=== PATIENT | male | born 1965 | race African-American/Black ===

== ENCOUNTER 2017-09-05 07:37 | Emergency (ER) | payer OTHER ==
[~2017-09-05] VITALS: Ht 177.8 cm; Wt 69.0 kg
[2017-09-05] MEDS ORDERED: SODIUM CHLORIDE 0.9% 1,000 ML IV ONE ×2 (08:56→10:45)
[2017-09-05] MEDS ORDERED: METOCLOPRAMIDE HCL 10MG/2ML VIAL IV STA (08:56)
[2017-09-05] MEDS ORDERED: MORPHINE SULFATE 4 MG/ML CPJ (NOT FOR IM USE) IV STA (08:56)
[2017-09-05 09:38] LABS: CLARITY URINE CLEAR (CLEAR); COLOR URINE YELLOW (YELLOW); KETONES URINE NEGATIVE (NEGATIVE); LEUKOCYTE ESTERASE URINE NEGATIVE (NEGATIVE); NITRITE URINE NEGATIVE (NEGATIVE); OCCULT BLOOD URINE NEGATIVE (NEGATIVE); PH URINE 7.5 (4.5-8.0); PROTEIN URINE NEGATIVE (NEGATIVE); SPECIFIC GRAVITY URINE 1.006 (1.005-1.030); UROBILINOGEN URINE 0.2 E.U./dL (0.2-1.0)
[2017-09-05 09:55] LABS: HEMOGLOBIN. 12.3 g/dL (14.0-18.0); LYMPHOCYTES % 47.3 % (20.0-50.0); MEAN CORPUSCULAR HEMOGLOBIN 31.7 pg (28.0-32.0); MEAN CORPUSCULAR VOLUME 95.7 fL (80.0-94.0); MEAN PLATELET VOLUME 7.7 fl (7.4-10.4); MONOCYTES % 6.8 % (2.0-8.0); NEUTROPHILS % 42.9 % (40.0-76.0); PLATELET 132 x1000/uL (130-400); RED BLOOD CELL COUNT 3.87 mill/uL (4.7-6.1); RED CELL DISTRIBUTION WIDTH 13.9 % (11.6-14.6)
[2017-09-05 09:59] LABS: CHLORIDE 109 mEq/L (98-107)
[2017-09-05 10:01] LABS: PROTHROMBIN TIME 10.7 sec (9.4-11.6)
[2017-09-05 10:10] LABS: BETA HYDROXYBUTYRATE 0.3 mMol/L (0.0-0.3)
[2017-09-05] MEDS ORDERED: ONDANSETRON HCL 4MG/2ML VIAL IV ONE (10:45)
[2017-09-05] MEDS ORDERED: MORPHINE SULFATE 2 MG/ML CPJ (NOT FOR IM USE) IV ONE (10:45)
[2017-09-05] MEDS ORDERED: MORPHINE SULFATE 4 MG/ML CPJ (NOT FOR IM USE) IV NR (11:40)
[2017-09-05 16:00] VITALS: BP 154/92
== END 2017-09-05 16:30 | disposition short-term general hospital (02) ==
LOC: ER 08:13 → ENRESERV 13:08 → CANRESERV 13:08 → CANBEDREQ 14:06 → ER 16:30
DX: K56.7 Ileus, unspecified (principal); K31.84 Gastroparesis; I10 Essential (primary) hypertension; E11.43 Type 2 diabetes mellitus with diabetic autonomic (poly)neuropathy; E11.65 Type 2 diabetes mellitus with hyperglycemia; E11.319 Type 2 diabetes mellitus with unspecified diabetic retinopathy without macular edema; F12.10 Cannabis abuse, uncomplicated; H40.9 Unspecified glaucoma; F17.200 Nicotine dependence, unspecified, uncomplicated; K52.9 Noninfective gastroenteritis and colitis, unspecified; Z86.73 Personal history of transient ischemic attack (TIA), and cerebral infarction without residual deficits; Z90.49 Acquired absence of other specified parts of digestive tract; Z98.890 Other specified postprocedural states
CPT/HCPCS: 36415; 74176; 80053; 81003; 82010; 82962; 83690; 83880; 84484; 85025; 85610; 93005; 96361; 96374; 96375; 96376; 99285; J2270; J2405; J2765; J7030; Z7610

== ENCOUNTER 2018-02-22 07:22 | Emergency (ER) | payer OTHER ==
[~2018-02-22] VITALS: Ht 170.2 cm; Wt 67.0 kg
[~2018-02-22 07:22] MED LIST: AMLO10TA4 PO; BENA20TA10 PO; CALC-25 PO; CYPR4SYR PO; GABA800T97 PO; LEVE500T19 PO; METF10004 PO; METO-293 PO; MORP30TA66 PO; PANT40TA4 PO
[2018-02-22 08:24] LABS: BASOPHILS % 0.8 % (0.0-2.0); EOSINOPHILS % 0.9 % (0.0-5.0); HEMATOCRIT. 37.2 % (42.0-52.0); HEMOGLOBIN. 12.7 g/dL (14.0-18.0); LYMPHOCYTES % 36.3 % (20.0-50.0); MEAN CORPUSCULAR HEMOGLOBIN 33.5 pg (28.0-32.0); MEAN CORPUSCULAR VOLUME 98.3 fL (80.0-94.0); MONOCYTES % 7.9 % (2.0-8.0); NEUTROPHILS % 54.1 % (40.0-76.0); PLATELET 147 x1000/uL (130-400); RED BLOOD CELL COUNT 3.78 mill/uL (4.7-6.1); RED CELL DISTRIBUTION WIDTH 14.8 % (11.6-14.6)
[2018-02-22 08:31] LABS: CHLORIDE 102 mEq/L (98-107)
[2018-02-22 08:41] LABS: CLARITY URINE CLEAR (CLEAR); COLOR URINE YELLOW (YELLOW); KETONES URINE NEGATIVE (NEGATIVE); LEUKOCYTE ESTERASE URINE NEGATIVE (NEGATIVE); NITRITE URINE NEGATIVE (NEGATIVE); OCCULT BLOOD URINE NEGATIVE (NEGATIVE); PROTEIN URINE NEGATIVE (NEGATIVE); SPECIFIC GRAVITY URINE 1.009 (1.005-1.030); UROBILINOGEN URINE 0.2 E.U./dL (0.2-1.0)
[2018-02-22 09:08] LABS: *AMPHETAMINES SCREEN URINE NEGATIVE (NEGATIVE); *BARBITURATES SCREEN URINE NEGATIVE (NEGATIVE); *BENZODIAZEPINES SCREEN URINE NEGATIVE (NEGATIVE); *COCAINE SCREEN URINE NEGATIVE (NEGATIVE)
[2018-02-22 09:09] LABS: CANNABINOID URINE SCREEN PRESUMTIVE POSITIVE (NEGATIVE); OPIATES URINE SCREEN PRESUMTIVE POSITIVE (NEGATIVE); PHENCYCLIDINE URINE SCREEN NEGATIVE (NEGATIVE)
[2018-02-22 09:10] LABS: METHADONE URINE SCREEN NEGATIVE (NEGATIVE)
[2018-02-22 10:06] VITALS: BP 143/80
== END 2018-02-22 10:12 | disposition home or self-care (01) ==
LOC: ER 07:22
DX: G40.909 Epilepsy, unspecified, not intractable, without status epilepticus (principal); I10 Essential (primary) hypertension; E11.9 Type 2 diabetes mellitus without complications; F12.90 Cannabis use, unspecified, uncomplicated; Z86.73 Personal history of transient ischemic attack (TIA), and cerebral infarction without residual deficits; R79.89 Other specified abnormal findings of blood chemistry
CPT/HCPCS: 36415; 80053; 80305; 81003; 85025; 99284

== ENCOUNTER 2018-03-07 12:59 | Inpatient (IN) | payer OTHER ==
[~2018-03-07] VITALS: Ht 177.8 cm; Wt 71.2 kg
[2018-03-07] MEDS ORDERED: NITROGLYCERIN OINT 1GM/INCH UDPKT TD STA (14:09)
[2018-03-07] MEDS ORDERED: MORPHINE SULFATE 4 MG/ML CPJ (NOT FOR IM USE) IV STA (14:09)
[2018-03-07] MEDS ORDERED: ONDANSETRON HCL 4MG/2ML INJ IV ONE (14:15)
[2018-03-07 14:24] LABS: BASOPHILS % 0.4 % (0.0-2.0); EOSINOPHILS % 0.9 % (0.0-5.0); HEMATOCRIT. 36.3 % (42.0-52.0); HEMOGLOBIN. 12.3 g/dL (14.0-18.0); LYMPHOCYTES % 40.6 % (20.0-50.0); MEAN CORPUSCULAR HEMOGLOBIN 33.7 pg (28.0-32.0); MEAN CORPUSCULAR VOLUME 99.1 fL (80.0-94.0); MEAN PLATELET VOLUME 8.2 fl (7.4-10.4); NEUTROPHILS % 50.1 % (40.0-76.0); PLATELET 147 x1000/uL (130-400); RED BLOOD CELL COUNT 3.66 mill/uL (4.7-6.1); RED CELL DISTRIBUTION WIDTH 14.9 % (11.6-14.6)
[2018-03-07 14:29] LABS: CHLORIDE 103 mEq/L (98-107)
[2018-03-07 17:54] LABS: CLARITY URINE CLEAR (CLEAR); COLOR URINE YELLOW (YELLOW); KETONES URINE NEGATIVE (NEGATIVE); LEUKOCYTE ESTERASE URINE NEGATIVE (NEGATIVE); NITRITE URINE NEGATIVE (NEGATIVE); OCCULT BLOOD URINE NEGATIVE (NEGATIVE); PH URINE 5.5 (4.5-8.0); PROTEIN URINE NEGATIVE (NEGATIVE); SPECIFIC GRAVITY URINE 1.005 (1.005-1.030); UROBILINOGEN URINE 0.2 E.U./dL (0.2-1.0)
[2018-03-07 20:00] VITALS: BP 161/90
[2018-03-07] MEDS ORDERED: ATOR40TA70 PO (21:20)
[2018-03-07] MEDS ORDERED: HYDR25TA PO (21:20)
[2018-03-07] MEDS ORDERED: ASPI-1158 PO (21:20)
[2018-03-07] MEDS ORDERED: POTA10TA20 PO (21:20)
[2018-03-07] MEDS ORDERED: CALC-25 PO (21:20)
[2018-03-07] MEDS ORDERED: CHOL100053 PO (21:20)
[2018-03-07 22:24] VITALS: BP 161/90
[2018-03-07] MEDS: HYDROMORPHONE HCL/PF 2MG/ML CPJ IV PRN (23:58)
[2018-03-08] VITALS: BP 144/80
[2018-03-08] MEDS ORDERED: POTASSIUM CHLORIDE 20MEQ TABLET SR PO SCH (01:00)
[2018-03-08] MEDS ORDERED: DEXT 5%/0.45% NACL KCL 20MEQ/L 1,000 ML IV NR (02:00)
[2018-03-08 04:00] VITALS: BP 110/63
[2018-03-08] MEDS: ONDANSETRON HCL 4MG/2ML INJ IV PRN ×2 (04:40→12:37)
[2018-03-08] MEDS: PANTOPRAZOLE 40MG DR TABLET PO SCH (06:29)
[2018-03-08 06:41] LABS: BASOPHILS % 0.6 % (0.0-2.0); EOSINOPHILS % 2.3 % (0.0-5.0); HEMATOCRIT. 32.5 % (42.0-52.0); HEMOGLOBIN. 11.3 g/dL (14.0-18.0); LYMPHOCYTES % 44.6 % (20.0-50.0); MEAN CORPUSCULAR HEMOGLOBIN 34.1 pg (28.0-32.0); MEAN CORPUSCULAR VOLUME 97.7 fL (80.0-94.0); MEAN PLATELET VOLUME 8.1 fl (7.4-10.4); MONOCYTES % 7.1 % (2.0-8.0); NEUTROPHILS % 45.4 % (40.0-76.0); PLATELET 128 x1000/uL (130-400); RED BLOOD CELL COUNT 3.33 mill/uL (4.7-6.1); RED CELL DISTRIBUTION WIDTH 14.9 % (11.6-14.6)
[2018-03-08 06:59] LABS: CHLORIDE 105 mEq/L (98-107)
[2018-03-08 07:09] LABS: CREATINE KINASE 126 IU/L (39-308)
[2018-03-08 07:10] LABS: HDL CHOLESTEROL 47 mg/dL (40-59)
[2018-03-08 07:12] LABS: CREATINE KINASE MB FRACTION < 1.0 ng/mL (0.5-3.6)
[2018-03-08] MEDS ORDERED: METFORMIN HCL 500MG TABLET PO SCH (07:15)
[2018-03-08 07:50] LABS: LDL CHOLESTEROL 8 mg/dL (5-100)
[2018-03-08 08:00] VITALS: BP 138/79
[2018-03-08] MEDS: GABAPENTIN 300MG CAPSULE PO SCH ×3 (09:35→17:25)
[2018-03-08] MEDS: BENAZEPRIL 10MG TABLET PO SCH (09:36)
[2018-03-08] MEDS: AMLODIPINE 10MG TABLET PO SCH (09:37)
[2018-03-08] MEDS: ASPIRIN 81MG TABLET PO SCH (09:37)
[2018-03-08] MEDS: LEVETIRACETAM 500MG TABLET PO SCH ×2 (09:37→21:20)
[2018-03-08] MEDS: HYDROCHLOROTHIAZIDE 25MG TABLET PO SCH (09:40)
[2018-03-08] MEDS ORDERED: DEXTROSE 50% WATER 50ML SYRINGE IV PRN (11:30)
[2018-03-08 11:43] VITALS: BP 140/85
[2018-03-08] MEDS: HYDROMORPHONE HCL/PF 2MG/ML CPJ IV PRN (11:46)
[2018-03-08] MEDS: BLOOD SUGAR DIAGNOSTIC STRIP TEST SCH ×3 (11:58→21:20)
[2018-03-08 16:00] VITALS: BP 122/70
[2018-03-08 16:24] LABS: HEMATOCRIT 34.5 % (42.0-52.0); HEMOGLOBIN 11.6 g/dL (14.0-18.0)
[2018-03-08 17:09] LABS: HEPATITIS B SURFACE ANTIGEN NEGATIVE
[2018-03-08 17:38] LABS: HEPATITIS B CORE AB IGM NEGATIVE
[2018-03-08 17:39] LABS: HEPATITIS A AB IGM NEGATIVE (NEGATIVE)
[2018-03-08] MEDS: METOCLOPRAMIDE HCL 10MG/2ML VIAL IV SCH (18:00)
[2018-03-08 20:00] VITALS: BP 130/71
[2018-03-08] MEDS ORDERED: ATORVASTATIN CALCIUM 40MG TABLET PO SCH (21:00)
[2018-03-08] MEDS: SUCRALFATE 1 G/10 ML UDC PO SCH (21:20)
[2018-03-09] VITALS: BP 120/74
[2018-03-09] MEDS: METOCLOPRAMIDE HCL 10MG/2ML VIAL IV SCH ×3 (01:54→12:47)
[2018-03-09] MEDS: HYDROMORPHONE HCL/PF 2MG/ML CPJ IV PRN ×3 (01:57→14:17)
[2018-03-09 04:00] VITALS: BP 120/74
[2018-03-09] MEDS: SUCRALFATE 1 G/10 ML UDC PO SCH ×3 (06:35→16:49)
[2018-03-09] MEDS: BLOOD SUGAR DIAGNOSTIC STRIP TEST SCH ×3 (06:36→16:49)
[2018-03-09] MEDS: PANTOPRAZOLE 40MG DR TABLET PO SCH (06:36)
[2018-03-09 07:01] LABS: HEMATOCRIT 32.4 % (42.0-52.0); HEMOGLOBIN 11.3 g/dL (14.0-18.0); MEAN CORPUSCULAR HEMOGLOBIN 34.2 pg (28.0-32.0); MEAN CORPUSCULAR VOLUME 98.1 fL (80.0-94.0); PLATELET 119 x1000/uL (130-400); RED CELL DISTRIBUTION WIDTH 14.9 % (11.6-14.6)
[2018-03-09 08:00] VITALS: BP 107/62
[2018-03-09] MEDS: GABAPENTIN 300MG CAPSULE PO SCH ×3 (09:26→16:49)
[2018-03-09] MEDS: HYDROCHLOROTHIAZIDE 25MG TABLET PO SCH (09:26)
[2018-03-09] MEDS: ASPIRIN 81MG TABLET PO SCH (09:26)
[2018-03-09] MEDS: AMLODIPINE 10MG TABLET PO SCH (09:30)
[2018-03-09] MEDS: BENAZEPRIL 10MG TABLET PO SCH (10:07)
[2018-03-09] MEDS: LEVETIRACETAM 500MG TABLET PO SCH (10:37)
[2018-03-09 13:09] LABS: CHLORIDE 105 mEq/L (98-107)
[2018-03-09 18:13] VITALS: BP 131/72
== END 2018-03-09 18:48 | disposition home or self-care (01) | DRG 48 ==
LOC: ER 13:22 → ENRESERV 17:37 → 5WST 22:16
PROVIDERS: ADMIT Internal Medicine; ATTEND Internal Medicine
DX: E11.43 Type 2 diabetes mellitus with diabetic autonomic (poly)neuropathy (principal); D61.810 Antineoplastic chemotherapy induced pancytopenia; E11.649 Type 2 diabetes mellitus with hypoglycemia without coma; R56.9 Unspecified convulsions; K31.84 Gastroparesis; E87.6 Hypokalemia; K74.60 Unspecified cirrhosis of liver; D64.9 Anemia, unspecified; D86.9 Sarcoidosis, unspecified; E78.00 Pure hypercholesterolemia, unspecified; E78.5 Hyperlipidemia, unspecified; H54.7 Unspecified visual loss; I11.9 Hypertensive heart disease without heart failure; N40.0 Benign prostatic hyperplasia without lower urinary tract symptoms; Z85.038 Personal history of other malignant neoplasm of large intestine; Z86.73 Personal history of transient ischemic attack (TIA), and cerebral infarction without residual deficits; Z90.49 Acquired absence of other specified parts of digestive tract; Z92.21 Personal history of antineoplastic chemotherapy; Z92.3 Personal history of irradiation; Z79.84 Long term (current) use of oral hypoglycemic drugs; Z79.899 Other long term (current) drug therapy
CPT/HCPCS: 36415; 71045; 74176; 76700; 80048; 80053; 80061; 80076; 81003; 82542; 82550; 82553; 82962; 83036; 83690; 84153; 84484; 85014; 85018; 85025; 85027; 86705; 86709; 86803; 87340; 93005; 93306; 96365; 96375; 99285; C1893; J1170; J2270; J2405; J2765; G0103

== ENCOUNTER 2018-04-04 02:59 | Emergency (ER) | payer OTHER ==
[~2018-04-04] VITALS: Ht 175.3 cm; Wt 69.6 kg
[~2018-04-04 02:59] MED LIST changes: +ASPI-1158 PO; +ATOR40TA70 PO; +CHOL100053 PO; -CYPR4SYR PO; +HYDR25TA PO; -METF10004 PO; -METO-293 PO; -MORP30TA66 PO
[2018-04-04] MEDS ORDERED: SODIUM CHLORIDE 0.9% 1,000 ML IV ONE (06:58)
[2018-04-04] MEDS ORDERED: FAMOTIDINE 20MG/2ML VIAL IV ONE (07:00)
[2018-04-04] MEDS ORDERED: METOCLOPRAMIDE HCL 10MG/2ML VIAL IV ONE (07:00)
[2018-04-04 07:22] LABS: BASOPHILS % 0.8 % (0.0-2.0); EOSINOPHILS % 1.5 % (0.0-5.0); HEMATOCRIT. 36.1 % (42.0-52.0); HEMOGLOBIN. 12.3 g/dL (14.0-18.0); LYMPHOCYTES % 29.8 % (20.0-50.0); MEAN CORPUSCULAR HEMOGLOBIN 33.7 pg (28.0-32.0); MEAN CORPUSCULAR VOLUME 98.7 fL (80.0-94.0); MEAN PLATELET VOLUME 7.7 fl (7.4-10.4); NEUTROPHILS % 61.9 % (40.0-76.0); PLATELET 134 x1000/uL (130-400); RED BLOOD CELL COUNT 3.66 mill/uL (4.7-6.1); RED CELL DISTRIBUTION WIDTH 14.5 % (11.6-14.6)
[2018-04-04 07:26] LABS: CHLORIDE 103 mEq/L (98-107)
[2018-04-04 07:31] LABS: ETHANOL BLOOD < 10 mg/dL
[2018-04-04] MEDS ORDERED: MORPHINE SULFATE 4 MG/ML CPJ (NOT FOR IM USE) IV ONE ×2 (10:30→13:45)
[2018-04-04] MEDS ORDERED: VISCOUS LIDOCAINE 2% 15 ML UDC PO STA (12:41)
[2018-04-04] MEDS ORDERED: MAGNESIUM/ALUMINUM HYDROXIDE/SIMETHICONE 30ML UDC PO STA (12:41)
[2018-04-04] MEDS ORDERED: ONDANSETRON HCL 4MG/2ML INJ IV ONE (12:45)
[2018-04-04 13:57] VITALS: BP 142/90
== END 2018-04-04 14:08 | disposition home or self-care (01) ==
LOC: ER 02:59
DX: K86.1 Other chronic pancreatitis (principal); R07.9 Chest pain, unspecified; G40.909 Epilepsy, unspecified, not intractable, without status epilepticus; I10 Essential (primary) hypertension; E11.9 Type 2 diabetes mellitus without complications; F12.10 Cannabis abuse, uncomplicated; Z86.73 Personal history of transient ischemic attack (TIA), and cerebral infarction without residual deficits; Z90.49 Acquired absence of other specified parts of digestive tract; Z79.899 Other long term (current) drug therapy
CPT/HCPCS: 36415; 71045; 80053; 83690; 84484; 85025; 93005; 96361; 96374; 96375; 96376; 99285; G0482; J2270; J2405; J2765; J3490; J7030